=== PATIENT | female | born 1950 | race Two or more races ===

== ENCOUNTER 2016-12-25 08:57 | Outpatient (CLI) | payer BC ==
--- NOTE | 2016-12-25 17:01 | Diagnostic Imaging Report ---
Indications: Screening Technique: Low dose film screen mammograms of both breasts was performed in craniocaudal, mediolateral oblique projections. Findings: Comparison: 10/11/2015, 10/05/2014, 10/03/2013 Skin and nipples remain unremarkable. Axillae contain benign-appearing lymph nodes. Parenchyma comprised of scattered fibroglandular densities, unchanged. Small circumscribed nodular asymmetry in the posterior lateral aspect of left breast on craniocaudal view unchanged. Left breast benign-appearing parenchymal calcifications are unchanged. No new mass, architectural distortion, suspicious microcalcifications, or other abnormalities identified. IMPRESSION: No evidence of malignancy, unchanged BI-RADS category 2: Benign finding(s) Breast density BI-RADS type B. Recommendation: Routine screening mammography.
== END 2016-12-25 10:27 | disposition home or self-care (01) ==
LOC: MAMMO 08:57
DX: Z12.31 Encounter for screening mammogram for malignant neoplasm of breast (principal)
CPT/HCPCS: 77067